=== PATIENT | male | born 1955 | race Caucasian/White ===

== ENCOUNTER → 2019-02-14 | Outpatient (CLI) | payer OTHER ==
--- NOTE | 2019-02-14 13:01 | CT ---
EXAMINATION TYPE: CT shoulder LT wo con DATE OF EXAM: 02/14/2019 COMPARISON: None. HISTORY: Fall, AC joint, pain, abnormal x-ray all per order. CT DLP: 127 mGycm Automated exposure control for dose reduction was used. FINDINGS: There is AC joint separation without fracture. There is roughly 7 mm osseous overlap of the inferior margin of the distal clavicle to the inferior margin of the acromion. There is roughly 14 mm superior positioning of the inferior margin of the distal clavicle to the inferior margin of the acromion. Glenohumeral joint is maintained. Mild to moderate narrowing is seen. Rotator cuff muscle bulk is fairly well-preserved. Visualized ribs are intact. Visualized lung is clear. Incidental 1.8 cm round posterior subcutaneous lesion abutting skin surface could reflect sebaceous c yst or other dermatologic etiology axial image 16. IMPRESSION: AC joint separation of indeterminate age without acute fracture.
== END | disposition home or self-care (01) ==
LOC: RADCTMAIN 12:02
PROVIDERS: ATTEND Family Medicine
DX: S43.102A Unspecified dislocation of left acromioclavicular joint, initial encounter (principal)